=== PATIENT | male | born 1970 | race Caucasian/White ===

== ENCOUNTER 2018-01-16 15:32 | Emergency (ER) | payer OTHER ==
[~2018-01-16] VITALS: Ht 182.9 cm; Wt 86.2 kg
[~2018-01-16 15:32] MED LIST: NOHOMEMEDICATIONS; NORCO 5-325 TA1 EACH PO; PRILOSEC 20 MG20 MG PO
[2018-01-16] MEDS ORDERED: TRAMADOL 50 MG50 MG PO (16:28)
[2018-01-16 16:46] VITALS: BP 123/84
== END 2018-01-16 16:46 | disposition home or self-care (01) ==
LOC: M.ERS 15:32
DX: M25.561 Pain in right knee (principal); J45.909 Unspecified asthma, uncomplicated; Z90.49 Acquired absence of other specified parts of digestive tract